=== PATIENT | female | born 1975 | race Caucasian/White ===

== ENCOUNTER 2021-04-12 16:59 | Outpatient (CLI) | payer OTHER, SELFPAY ==
--- NOTE | ~2021-04-12 | MM_ITS ---
EXAMINATION: MM screening [facility] BI w radha HISTORY: Screening mammogram TECHNIQUE: Craniocaudal and mediolateral oblique 3-D tomosynthesis images were obtained and synthetic 2-D images were generated. CAD analysis was submitted and interpreted. COMPARISON: 12/28/2018, 06/23/2017, 12/13/2015 BREAST PARENCHYMAL COMPOSITION: There are scattered areas of fibroglandular density. FINDINGS: There is unchanged chronic asymmetry in the posterior third of the outer left breast on the craniocaudal view, consistent with a benign finding. There is no evidence of suspicious mass, calcif ication, or architectural distortion to suggest malignancy in either breast. There has been no suspic ious interval change. IMPRESSION: 1. No mammographic evidence of malignancy. 2. Recommend routine screening mammography in one year. BI-RADS Category 2: Benign finding(s). Reviewed, dictated and finalized at location A.
== END 2021-04-12 17:00 | disposition home or self-care (01) ==
LOC: ANHIMG 17:02
PROVIDERS: PCP Family Medicine; Visit Provider Nurse Practitioner Family
DX: Z12.31 Encounter for screening mammogram for malignant neoplasm of breast (principal)
CPT/HCPCS: 77063; 77067

== ENCOUNTER → 2021-08-09 15:56 | Outpatient (CLI) | payer OTHER, SELFPAY ==
--- NOTE | ~2021-08-09 | US_ITS ---
EXAMINATION: US transvaginal EXAM DATE: 08/09/2021 16:18 INDICATION: Abnormal uterine bleeding. TECHNIQUE: Pelvic transvaginal sonogram was performed. There are multiple grayscale and Doppler cher ges available for interpretation. There is no prior study for comparison. FINDINGS: Uterus measures 8.0 x 4.3 x 5.1 cm, with several small heterogeneous regions which could b e fibroids measuring up to 1.7 cm. Endometrial stripe measures 8 mm, within normal limits. There is no free pelvic fluid. Right adnexa: The ovary measures 2.0 x 1.4 x 2.4 cm and is morphologically normal. Ovarian vascular f low confirmed. Left adnexa: The ovary measures 1.5 x 0.8 x 1.6 cm and is morphologically normal. Ovarian vascular fl ow confirmed. IMPRESSION: Small fibroids. Reviewed, dictated and finalized at location A. IMPRESSION: Small fibroids.
== END ==
PROVIDERS: PCP Nurse Practitioner Family; Visit Provider Obstetrics & Gynecology
DX: N93.9 Abnormal uterine and vaginal bleeding, unspecified (principal); D25.9 Leiomyoma of uterus, unspecified
CPT/HCPCS: 76830

== ENCOUNTER → 2021-10-14 14:44 | Outpatient (CLI) | payer OTHER, SELFPAY ==
--- NOTE | ~2021-10-14 | US_ITS ---
EXAMINATION: US thyroid EXAM DATE: 10/14/2021 14:57 INDICATION: Goiter TECHNIQUE: Multiple grayscale and Doppler images of the thyroid were obtained (by a technologist who performed the scan) and subsequently reviewed. Individual nodules and recommendations may be reporte d in accordance with TI-RADS system as designated by the 2017 ACR White Paper TI-RADS committee. Comp piotrson is made to prior examination from 10/16/2016. FINDINGS: The right there are lobe measures 3.7 x 1.2 x 1.1 cm, the left measuring 3.1 x 0.9 x 1.1 c m, within normal size limits. There is mild diffusely heterogeneous thyroid echogenicity without foca l nodule identified. IMPRESSION: Unremarkable thyroid ultrasound exam. Reviewed, dictated and finalized at location G. [employer]
== END ==
PROVIDERS: PCP Nurse Practitioner Family; Visit Provider Internal Medicine Endocrinology, Diabetes & Metabolism
DX: E04.9 Nontoxic goiter, unspecified (principal)
CPT/HCPCS: 76536

== ENCOUNTER → 2022-03-21 16:01 | Outpatient (CLI) | payer OTHER, SELFPAY ==
--- NOTE | ~2022-03-21 | XR_ITS ---
EXAM: XR lumbar spine 2-3V DATE: 03/21/2022 16:53 HISTORY: Lumbago with sciatica . COMPARISON: None available. FINDINGS: 5 nonrib-bearing lumbar-type vertebral bodies. Pedicles intact. Lumbar scoliosis. Multilev el degenerative disc narrowing and marginal osteophytosis, severe at L2-3. Multilevel lumbar facet sc lerosis and interspinous narrowing. No fracture or dislocation. IMPRESSION: Severe degenerative disc disease L2-3. Severe scoliosis. Multilevel facet arthropathy. Reviewed, dictated and finalized at location K.
== END ==
PROVIDERS: PCP Nurse Practitioner Family; Visit Provider Nurse Practitioner Family
DX: M54.40 Lumbago with sciatica, unspecified side (principal); M51.36 Other intervertebral disc degeneration, lumbar region; M41.9 Scoliosis, unspecified
CPT/HCPCS: 72100